=== PATIENT | female | born 2000 | race Caucasian/White ===

== ENCOUNTER 2023-12-03 16:17 | Outpatient (CLI) | payer BC, SELFPAY ==
--- NOTE | ~2023-12-03 | XR_ITS ---
EXAMINATION: XR_[id number]_CR DATE: 12/03/2023 16:50 INDICATION: Segmental and somatic dysfunction of cervical region. Neck pain. TECHNIQUE: 3 views of cervical spine were obtained. COMPARISON: None. FINDINGS: There is mild kyphosis of cervical spine. There is 8 degrees levocurvature of cervicothorac ic spine. Vertebral body heights are normal. Intervertebral disc heights are normal. There is mild fa cet joint osteoarthritis at C7-T1. No central canal stenosis or prevertebral soft tissue swelling. IMPRESSION: 1. Mild facet joint osteoarthritis at C7-T1. Reviewed, dictated and finalized at location A.
--- NOTE | ~2023-12-03 | XR_ITS ---
EXAMINATION: XR lumbar spine 2-3V DATE: 12/03/2023 16:50 INDICATION: Segmental and somatic dysfunction of lumbar region. Low back pain. TECHNIQUE: 3 views of lumbar spine including standing views were obtained. COMPARISON: None. FINDINGS: There is 6 degrees dextrocurvature of lumbar spine. L4 is a limbus vertebra. Intervertebral disc heights are normal. The facet joints are unremarkable. IMPRESSION: 1. Lumbar dextrocurvature. Reviewed, dictated and finalized at location A. IMPRESSION: 1. Lumbar dextrocurvature.
== END 2023-12-03 16:18 | disposition home or self-care (01) ==
DX: M47.813 Spondylosis without myelopathy or radiculopathy, cervicothoracic region (principal); M41.86 Other forms of scoliosis, lumbar region; M99.01 Segmental and somatic dysfunction of cervical region; M99.03 Segmental and somatic dysfunction of lumbar region
CPT/HCPCS: 72040; 72100